=== PATIENT | female | born 1945 | race Caucasian/White ===

== ENCOUNTER → 2020-02-14 11:46 | Outpatient (BNVA) | payer MEDICARE, MEDICAID, SELFPAY | PROVIDERS: Family Provider Registered Nurse; Visit Provider Registered Nurse | DX: E55.9 Vitamin D deficiency, unspecified (principal); F32.9 Major depressive disorder, single episode, unspecified; F51.02 Adjustment insomnia; E78.5 Hyperlipidemia, unspecified; Z23 Encounter for immunization | CPT/HCPCS: 80053; 80061; 82306; 82607; 85025 ==

== ENCOUNTER 2020-05-26 10:27 | Outpatient (CLI) | payer MEDICARE, MEDICAID, SELFPAY ==
--- NOTE | 2020-05-26 10:37 | XR_ITS ---
WS: [id number] Right wrist, 2 views, 05/26/2020 Clinical Data: M25.531 - Pain in right wrist Comparison: None. Findings: There is an impacted fracture of the distal right radius. The distal ulna is normal. The carpal bones are intact. There is sclerosis at the articulation between the distal radius and scaphoid. No other fractures are seen. XR/XR wrist RT 2V [id number] Impression: Impacted fracture distal right radius.
--- NOTE | 2020-05-26 10:37 | XR_ITS ---
WS: [id number] Right hand, 3 views, 05/26/2020 Clinical Data: M79.641 - Pain in right hand Comparison: None. Findings: There is an impacted fracture of the distal right radius. The metacarpals and phalanges are intact. The soft tissues of the hand are normal. XR/XR hand RT min 3V* [id number] Impression: Impacted fracture distal right radius.
== END 2020-05-26 10:28 | disposition home or self-care (01) ==
LOC: RAD 10:33
PROVIDERS: Family Provider Registered Nurse; Visit Provider Registered Nurse
DX: S52.501A Unspecified fracture of the lower end of right radius, initial encounter for closed fracture (principal); X58.XXXA Exposure to other specified factors, initial encounter
CPT/HCPCS: 73100; 73130

== ENCOUNTER 2020-05-30 11:36 | Outpatient (CLI) | payer MEDICARE, MEDICAID, SELFPAY | END 2020-05-30 11:37 | disposition home or self-care (01) | LOC: SPT 11:37 | PROVIDERS: Family Provider Registered Nurse; Visit Provider Orthopaedic Surgery | DX: Z46.89 Encounter for fitting and adjustment of other specified devices (principal); S52.501D Unspecified fracture of the lower end of right radius, subsequent encounter for closed fracture with routine healing; X58.XXXD Exposure to other specified factors, subsequent encounter | CPT/HCPCS: 97760; L3982 ==

== ENCOUNTER → 2020-07-04 09:46 | Outpatient (BNVA) | payer MEDICARE, MEDICAID, SELFPAY | PROVIDERS: Family Provider Registered Nurse; Visit Provider Orthopaedic Surgery | DX: S52.501A Unspecified fracture of the lower end of right radius, initial encounter for closed fracture (principal); X58.XXXA Exposure to other specified factors, initial encounter | CPT/HCPCS: 73110 ==

== ENCOUNTER → 2021-04-25 15:00 | Outpatient (BNVA) | payer MEDICARE, MEDICAID, SELFPAY | PROVIDERS: Family Provider Registered Nurse; Visit Provider Internal Medicine | DX: I10 Essential (primary) hypertension (principal); J44.9 Chronic obstructive pulmonary disease, unspecified; F17.210 Nicotine dependence, cigarettes, uncomplicated | CPT/HCPCS: 80053; 84443 ==

== ENCOUNTER 2021-07-09 08:57 | Outpatient (CLI) | payer MEDICARE, MEDICAID, SELFPAY ==
--- NOTE | 2021-07-09 09:07 | CT_ITS ---
WS: [id number] LDCT LUNG CANCER SCREENING HISTORY: watermelon inspector smoker TECHNIQUE: Axial imaging performed from the apices to 1 cm below the costophrenic angles. Coronal and sagittal reformats are submitted with axial MIP series. All CT scans at [facility] use at least one of these dose optimization techniques: automated exposure control; mA and/or kV adjustment per patient size (includes targeted exams where dose is matched to clinical indication); or iterativ e reconstruction. DLP: 76.49 mGy.cm DIvol: Mean CTDIvol: 1.60 (mGy) COMPARISON: 05/17/2013 Diagnostic quality: Satisfactory Lung Nodules: 5 mm nodule in the RIGHT middle lobe stable since 05/17/2013. No endobronchial lesions. Benign 3 mm granuloma RIGHT upper lobe. Lungs: Moderate emphysema. Interstitial thickening and fibrotic changes are noted in the periphery of the RIGHT upper lobe and extending along the major and minor fissure. Heart: Normal size heart. No pericardial effusion. Other findings: Moderate atherosclerotic changes throughout the thoracic aorta. There is a focal bulg ing with calcification at the aortic isthmus measuring 1.9 x 2.2 cm. Pulmonary artery is slightly enl arged. Partially calcified great vessels at the origins. Hyperplastic LEFT adrenal gland. Unchanged s stephania 2013. 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 Aneurysm is partially calcified, probably from prior trauma.
--- NOTE | 2021-07-09 09:10 | USCV_ITS ---
Liliam Botello Age: 75 Gender: F : 1945 Exam Date: 07/09/2021 09:40 Ordering Phys: Phil Maier MD Technologist: Joel Blanco Exam Location: [facility] [place] Indication: chf BP: 138 / 83 HR: 98 Rhythm: Sinus Technical Quality: Adequate MEASUREMENTS (Male / Female) Normal Values 2D ECHO LV Diastolic Diameter PLAX 2.8 cm 4.2 - 5.9 / 3.9 - 5.3 cm LV Systolic Diameter PLAX 2.2 cm IVS Diastolic Thickness 1.1 cm 0.6 - 1.0 / 0.6 - 0.9 cm IVS Systolic Thickness 1.4 cm LVPW Diastolic Thickness 1.3 cm 0.6 - 1.0 / 0.6 - 0.9 cm LVPW Systolic Thickness 1.4 cm LVOT Diameter 2.0 cm LV Ejection Fraction 2D Teich 12.4 % LV Ejection Fraction MOD 2C 79.1 % LV Ejection Fraction 2C AL 79.7 % LA Diameter 3.3 cm Aorta at Sinotubular Diameter 2.0 cm M-MODE Aortic Annulus Diameter 2.9 cm LA Ao Ratio MM 1.1 MV E Point Septal Separation 0.5 cm DOPPLER AV Peak Velocity 212.0 cm/s LVOT Peak Velocity 115.0 cm/s AV Area Cont Eq vti 2.2 cm squared AV Area Cont Eq pk 1.7 cm squared MV Area PHT 5.0 cm squared Mitral E to A Ratio 0.9 MV E' Velocity 50.5 cm/s Mitral E to MV E' Ratio 9.5 Mitral E to LV E' Lateral Ratio 9.0 Mitral E to LV E' Septal Ratio 10.1 TR Peak Velocity 287.7 cm/s TR Peak Gradient 33.1 mmHg TV Peak E Velocity 80.0 cm/s Right Atrial Pressure 3.0 mmHg Pulmonary Artery Systolic Pressu 36.1 mmHg PV Peak Velocity 100.0 cm/s FINDINGS Left Ventricle Normal left ventricular size. LV systolic function is normal with EF of 55-60%. No regional wall motion abnormalities. Grade 1 diastolic dysfunction Right Ventricle The right ventricle is normal in size and function. Right Atrium The right atrium is normal in size. Left Atrium The left atrium is normal in size. Mitral Valve Structurally normal mitral valve without significant stenosis or prolapse. There is no mitral regurgitation. Aortic Valve Aortic valve is thickened. Mild aortic stenosis with KARYN of 2.1 cm2 and mean gradient of 10.2mmHg. There is mild aortic regurgitation. Tricuspid Valve Structurally normal tricuspid valve without significant stenosis or regurgitation. Insufficient TR jet to calculate RVSP Pulmonic Valve Grossly normal Pericardium Normal pericardium without effusion. Aorta Normal ascending aorta dimension. CONCLUSIONS LV systolic function is normal with EF of 55-60% Grade 1 diastolic dysfunction Aortic valve is thickened. Mild aortic stenosis is seen with mean gradient of 10.2mmHg. Mild aortic regurgitation No comparison study is available Ronal Noe MD (Electronically Signed) Final Date: 09 July 2021 22:42 S
== END 2021-07-09 08:58 | disposition home or self-care (01) ==
LOC: RAD 09:01
PROVIDERS: PCP Internal Medicine; Visit Provider Internal Medicine
DX: F17.210 Nicotine dependence, cigarettes, uncomplicated (principal); I50.9 Heart failure, unspecified; I35.1 Nonrheumatic aortic (valve) insufficiency; Z12.2 Encounter for screening for malignant neoplasm of respiratory organs
CPT/HCPCS: 71271; 93306

== ENCOUNTER → 2022-06-10 10:03 | Outpatient (BNVA) | payer MEDICARE, MEDICAID, SELFPAY | PROVIDERS: PCP Internal Medicine; Visit Provider Registered Nurse | DX: I10 Essential (primary) hypertension (principal); E55.9 Vitamin D deficiency, unspecified | CPT/HCPCS: 80053; 80061; 82306; 85025 ==

== ENCOUNTER → 2022-06-25 09:56 | Outpatient (BNVA) | payer MEDICARE, MEDICAID, SELFPAY | PROVIDERS: PCP Internal Medicine; Visit Provider Registered Nurse | DX: D72.829 Elevated white blood cell count, unspecified (principal); I10 Essential (primary) hypertension; D69.6 Thrombocytopenia, unspecified | CPT/HCPCS: 80053; 85025 ==

== ENCOUNTER → 2022-07-08 09:13 | Outpatient (BNVA) | payer MEDICARE, MEDICAID, SELFPAY | PROVIDERS: PCP Internal Medicine; Visit Provider Registered Nurse | DX: D69.6 Thrombocytopenia, unspecified (principal) | CPT/HCPCS: 85007; 85027 ==

== ENCOUNTER → 2023-05-28 11:40 | Outpatient (BNVA) | payer MEDICARE, MEDICAID, SELFPAY | PROVIDERS: PCP Internal Medicine; Visit Provider Registered Nurse | DX: I10 Essential (primary) hypertension (principal); E55.9 Vitamin D deficiency, unspecified | CPT/HCPCS: 80053; 80061; 82306; 85025 ==

== ENCOUNTER 2023-11-24 10:28 | Outpatient (CLI) | payer MEDICARE, MEDICAID, SELFPAY | END 2023-11-24 10:29 | disposition home or self-care (01) | LOC: SLEEP 10:29 | PROVIDERS: PCP Internal Medicine; Visit Provider Registered Nurse | DX: J44.9 Chronic obstructive pulmonary disease, unspecified (principal) | CPT/HCPCS: 94762 ==

== ENCOUNTER → 2024-12-15 10:33 | Outpatient (BNVA) | payer MEDICARE, MEDICAID, SELFPAY | PROVIDERS: PCP Internal Medicine; Visit Provider Registered Nurse | DX: F51.02 Adjustment insomnia (principal) | CPT/HCPCS: 81000 ==